=== PATIENT | male | born 1980 | race Caucasian/White ===

== ENCOUNTER 2016-12-18 16:09 | Emergency (ER) | payer OTHER ==
[~2016-12-18] VITALS: Wt 100.0 kg
[2016-12-18] MEDS ORDERED: FLUORESCEIN STRIP RIGHT EYE ONE (18:30)
[2016-12-18] MEDS ORDERED: OPHTHALMIC IRRIG SOLUTION 120 ML RIGHT EYE ONE (18:30)
--- NOTE | 2016-12-18 18:42 | ERD ---
ER Documentation Chief Complaint Date/Time DATE: 12/18/16 TIME: 18:40 Chief Complaint RIGHT EYE PAIN AND POSSIBLE FOREIGN BODY SINCE THIS MORNING HPI This 36-year-old male complains of right eye irritation since this morning. Denies any significant event. He feels maybe there was some dust got in his eye possibly from working with a water heater yesterday or while sleeping. Denies working with a contact lens curve grinder, visual changes or visual field deficits. Feels the irritation underneath his lid and he feels no symptoms when he is not blinking. ROS All systems reviewed and are negative except as per history of present illness. Allergies Allergies: Coded Allergies: Amoxicillin (Verified Allergy, Unknown, rashes, 03/03/14) PMhx/Soc History of Surgery: Yes Anesthesia Reaction: No Hx Alcohol Use: No Hx Substance Use: No Hx Tobacco Use: Yes Smoking Status: Never smoker Physical Exam Vitals Vital Signs Date Time Temp Pulse Resp B/P Pulse Ox O2 Delivery O2 Flow Rate FiO2 12/18/16 16:15 98.0 92 20 129/84 98 Physical Exam Const: [] Alert, [id number]-[id number] per Head: Atraumatic Eyes: Normal Conjunctiva. No visible foreign body. No dendritic lesions, ulcerations and eyes are PERRLA and extraocular movements intact ENT: Normal External Ears, Nose and Mouth. Neck: Full range of motion..~ No meningismus. Resp: Clear to auscultation bilaterally Cardio: Regular rate and rhythm, no murmurs Abd: Soft, non tender, non distended. Normal bowel sounds Skin: No petechiae or rashes Back: No midline or flank tenderness Ext: No cyanosis, or edema Neur: Awake and alert Psych: Normal Mood and Affect Results 24 hrs Current Medications Medications (Trade) Dose Ordered Sig/Tram Route PRN Reason Start Time Stop Time Status Last Admin Dose Admin Fluorescein Sodium (Cqgbj-K-Dsqav) 1 strip ONCE ONCE RIGHT EYE 12/18/16 18:30 12/18/16 18:31 DC Irrigating Solution (Eye Wash) 1 applic ONCE ONCE RIGHT EYE 12/18/16 18:30 12/18/16 18:31 DC Procedures/MDM Foreskin test was negative and there is no SieDel sign. I was empirically irrigated. Patient had relief of symptoms after observation, irrigation significant time after tetracaine. Patient has signs and symptoms of likely small subclinical foreign body such as dust which may have resolved or possibly a small subclinical scratch without evidence of globe rupture. He will be discharged home with further observation, instructions for artificial tears instructions to see an locum tenens this week for persistent symptoms. She does return for fevers, redness, swelling, new worsening symptoms. Departure Diagnosis: Primary Impression: Pain in eye Laterality: right Qualified Code: H57.11 - Pain in eye, right Condition: Stable Patient Instructions: Conjunctival Foreign Body, Resolved Referrals: [facility] Hours: Mon - Mon 9:00 AM - 5:00 PM Additional Instructions: Unable to see any specific foreign body or acute abnormality. Recommend keep eye moist and follow-up with ophthalmology this week for persistent symptoms. YOON LUQUE MD Dec 18, 2016 18:42
== END 2016-12-18 18:52 | disposition home or self-care (01) ==
LOC: FTE 16:09
DX: H57.11 Ocular pain, right eye (principal); Z87.891 Personal history of nicotine dependence
CPT/HCPCS: 99283

== ENCOUNTER 2017-03-07 13:40 | Day surgery (SDC) | payer OTHER ==
[~2017-03-07] VITALS: Ht 185.4 cm; Wt 102.7 kg
[2017-03-07 15:22] VITALS: Ht 185.4 cm; Wt 102.7 kg
[2017-03-07] MEDS ORDERED: FLUT9.9S NASAL (15:30)
[2017-03-07 15:45] VITALS: BP 116/78; PULSE 72; RESP 18
[2017-03-07] MEDS ORDERED: PROPOFOL 40 ML ONE (16:04)
[2017-03-07] MEDS ORDERED: MIDAZOLAM 1 MG/ML 2 ML INJ ONE (16:04)
[2017-03-07 16:30] VITALS: BP 135/78; PULSE 98; RESP 16
[2017-03-07 17:00] VITALS: BP 113/79; PULSE 75; RESP 16
--- NOTE | 2017-03-07 17:50 | GILP ---
DATE OF PROCEDURE: NAME OF PROCEDURE: Colonoscopy. SURGEON: Hali Murguia MD PREOPERATIVE DIAGNOSIS: Rectal bleeding. POSTOPERATIVE DIAGNOSES 1. Colonoscopy all the way to the cecum. 2. Internal hemorrhoids. INDICATION FOR THE PROCEDURE: Mr. Viktor Mcmahon is a 36-year-old male patient who had rectal bleeding . The patient was scheduled for colonoscopy for further evaluation. The procedure and possible complications were well explained to the patient; he understood and conse nted to the procedure. DESCRIPTION OF PROCEDURE: Under the influence of anesthesia, the colonoscope was carefully introduc ed in the rectum and under direct vision, it was advanced all the way to the cecum. FINDINGS: The patient had internal hemorrhoids. He tolerated the procedure very well, and there was no complication from the procedure. At the end of the procedure, he was awake with stable vital signs and he was discharged home to the care of his family. IMPRESSION: 1. Colonoscopy all the way to the cecum. 2. Internal hemorrhoids. PLAN: Anusol-HC 2.5% cream at bedtime p.r.n. Dictated By: HALI GEE/KASEY Conf#: [id number] DID#: [id number]
== END 2017-03-07 18:29 | disposition home or self-care (01) ==
LOC: GIL 13:40
PROVIDERS: ATTEND Internal Medicine Gastroenterology
DX: K62.5 Hemorrhage of anus and rectum (principal); K64.8 Other hemorrhoids
CPT/HCPCS: 45378; J2250; Z7610